=== PATIENT | male | born 1935 | race Caucasian/White ===

== ENCOUNTER 2024-02-09 20:18 | Inpatient (IN) | payer OTHER ==
[~2024-02-09] VITALS: Ht 172.7 cm; Wt 55.8 kg
[2024-02-09 20:20] VITALS: BP_SYST 130; PULSE 78; RESP 15; TEMP 97.9; O2SAT 98
[2024-02-09] MEDS ORDERED: iohexoL 350 mgI/mL, 100 ML INFUS..BTL IV ONE (20:58)
[2024-02-09 21:21] LABS: BASOPHILS % (AUTO) 0.8 % (0.0-2.0); EOSINOPHILS # (AUTO) 0.1 K/uL (0.0-0.4); EOSINOPHILS % (AUTO) 1.5 % (0.0-4.0); HEMATOCRIT 33.5 % (36-54); HEMOGLOBIN 11.4 g/dL (14.0-18.0); LYMPHOCYTES # (AUTO) 0.8 K/uL (1.0-5.5); LYMPHOCYTES % (AUTO) 14.5 % (20.5-51.5); MEAN CORPUSCULAR HEMOGLOBIN 31 pg (27-31); MEAN CORPUSCULAR HGB CONC 34 % (32-36); MEAN CORPUSCULAR VOLUME 91 fL (79.0-98.0); MONOCYTES # (AUTO) 0.4 K/uL (0.0-1.0); MONOCYTES % (AUTO) 6.8 % (1.7-9.3); NEUTROPHILS % (AUTO) 76.4 % (40.0-70.0); PLATELET COUNT (AUTO) 250 K/uL (130-430); RED BLOOD CELL COUNT(AUTO) 3.68 MIL/uL (4.2-6.2); RED CELL DISTRIBUTION WIDTH 15.3 % (9.0-15.0); WHITE BLOOD COUNT (AUTO) 5.2 K/uL (4.8-10.8)
[2024-02-09 21:29] LABS: ANION GAP 9 (5-15); CALCIUM 8.1 mg/dL (8.4-11.0); CARBON DIOXIDE 27 mmol/L (23-29); CHLORIDE 101 mmol/L (98-107); CREATININE 1.05 mg/dL (0.55-1.30); GLUCOSE 85 mg/dL (74-106); SODIUM SERUM 137 mmol/L (136-145); UREA NITROGEN, BLOOD 29 mg/dL (8-21)
[2024-02-09 21:34] LABS: INR 1.3 (0.80-1.20); PROTHROMBIN TIME 13.3 SECS (9.5-12.5)
[2024-02-09] MEDS: NACL 0.9% 1,000 ML IV ONE (21:58)
[2024-02-09] MEDS ORDERED: ONDANSETRON HCL 4 MG/2 ML VIAL IVP PRN (22:45)
[2024-02-09] MEDS ORDERED: KETOROLAC TROMETHAMINE 15 MG VIAL IVP PRN (22:45)
[2024-02-09] MEDS ORDERED: LORazepam 2 MG/ML VIAL IVP PRN (22:45)
[2024-02-09] MEDS: ASPIRIN 325 MG TABLET PO ONE (23:27)
[2024-02-09] MEDS ORDERED: LOSA-413 PO (23:49)
[2024-02-09] MEDS ORDERED: APIX5TAB PO (23:49)
[2024-02-09] MEDS ORDERED: METO25TA3 PO (23:49)
[2024-02-09] MEDS ORDERED: PERC10 PO (23:49)
[2024-02-09] MEDS ORDERED: LYR25 PO (23:49)
[2024-02-09] MEDS ORDERED: LIP80 PO (23:49)
[2024-02-09] MEDS ORDERED: AMIO200T66 PO (23:49)
[2024-02-09] MEDS ORDERED: MAGN296S8 PO (23:49)
[2024-02-09] MEDS: ATORVASTATIN 20 MG TABLET PO SCH (23:51)
[2024-02-10] VITALS: BP_SYST 94; PULSE 85; RESP 16; TEMP 97.3; O2SAT 99
[2024-02-10 00:31] VITALS: BP_SYST 94; PULSE 85; RESP 16; TEMP 97.3; O2SAT 99
[2024-02-10] MEDS: NACL 0.9% 1,000 ML IV SCH ×2 (04:03→11:40)
[2024-02-10] MEDS ORDERED: ONDANSETRON HCL 4 MG/2 ML VIAL IVP PRN (04:30)
[2024-02-10] MEDS ORDERED: LORazepam 2 MG/ML VIAL IVP PRN (04:30)
[2024-02-10] MEDS: ATORVASTATIN 20 MG TABLET ONE (06:00)
[2024-02-10 08:19] VITALS: BP_SYST 126; PULSE 90; RESP 18; TEMP 97.5; O2SAT 99
[2024-02-10] MEDS ORDERED: ACET-2634 PO (11:53)
[2024-02-10] MEDS ORDERED: CALC1WAF4 PO (11:53)
[2024-02-10] MEDS ORDERED: OXYC-128 PO (11:53)
[2024-02-10] MEDS ORDERED: DICL100G60 TP (11:53)
[2024-02-10] MEDS ORDERED: FURO20TA4 PO (11:53)
[2024-02-10] MEDS ORDERED: MAGN250C PO (11:58)
[2024-02-10] MEDS ORDERED: CALC-808 PO (11:58)
[2024-02-10 12:00] VITALS: BP_SYST 110; PULSE 88; RESP 18; TEMP 97.8; O2SAT 98
[2024-02-10 16:00] VITALS: BP_SYST 103; PULSE 91; RESP 19; TEMP 97.5; O2SAT 98
[2024-02-10] MEDS ORDERED: MENTHOL/ZINC OXIDE 113 GM OINT. TP PRN (16:45)
[2024-02-10 20:00] VITALS: BP_SYST 110; PULSE 87; RESP 20; TEMP 99.2; O2SAT 95
[2024-02-10] MEDS: KETOROLAC TROMETHAMINE 15 MG VIAL IVP PRN (22:12)
[2024-02-10] MEDS ORDERED: OXYCODONE/ACETAMINOPHEN 5-325 TABLET PO PRN (23:00)
[2024-02-10] MEDS ORDERED: ACETAMINOPHEN 500 MG TABLET PO PRN (23:00)
[2024-02-11] VITALS: BP_SYST 127; PULSE 82; RESP 18; TEMP 98.8; O2SAT 98
[2024-02-11 08:00] VITALS: BP_SYST 135; PULSE 90; RESP 16; TEMP 96.7
[2024-02-11 09:14] LABS: CHOLESTEROL 94 mg/dL (<200); HDL CHOLESTEROL 42 mg/dL (>45); TRIGLYCERIDES 43 mg/dL (30-150)
[2024-02-11] MEDS: LOSARTAN POTASSIUM 50 MG TABLET (COZAAR) PO SCH (09:37)
[2024-02-11] MEDS: AMIODARONE HCL 200 MG TABLET PO SCH (09:38)
[2024-02-11] MEDS: METOPROLOL SUCCINATE 25 MG TAB.SR.24H (TOPROL XL) PO SCH (09:39)
[2024-02-11] MEDS: PREGABALIN 25 MG CAPSULE (LYRICA) PO SCH (09:43)
[2024-02-11] MEDS: FUROSEMIDE 20 MG TABLET PO SCH (09:43)
[2024-02-11 12:00] VITALS: BP_SYST 121; PULSE 80; RESP 18; TEMP 97.3
[2024-02-11 16:12] VITALS: BP_SYST 103; PULSE 93; RESP 16; TEMP 96.8; O2SAT 97
[2024-02-11] MEDS ORDERED: CALCIUM 200 mg(from Citrate)/VITAMIN D3 250 units TABLET PO SCH (18:00)
[2024-02-11] MEDS ORDERED: CALCIUM CARBONATE/VITAMIN D3 1 TAB TABLET PO SCH (18:00)
[2024-02-11] MEDS ORDERED: ATORVASTATIN 20 MG TABLET PO SCH (21:00)
== END 2024-02-11 17:00 | DRG 69 ==
LOC: SED 20:18 → STU 22:43
PROVIDERS: ADMIT Family Medicine; ATTEND Family Medicine
DX: G45.9 Transient cerebral ischemic attack, unspecified (principal); E44.1 Mild protein-calorie malnutrition; Z68.1 Body mass index [BMI] 19.9 or less, adult; F41.9 Anxiety disorder, unspecified; F03.90 Unspecified dementia, unspecified severity, without behavioral disturbance, psychotic disturbance, mood disturbance, and anxiety; I11.0 Hypertensive heart disease with heart failure; I50.9 Heart failure, unspecified; E78.5 Hyperlipidemia, unspecified; G62.9 Polyneuropathy, unspecified; I48.91 Unspecified atrial fibrillation; Z95.0 Presence of cardiac pacemaker; Z88.5 Allergy status to narcotic agent; Z79.01 Long term (current) use of anticoagulants; Z79.899 Other long term (current) drug therapy
CPT/HCPCS: 36415; 70450; 70496; 70498; 71045; 80048; 80061; 83880; 84484; 85025; 85610; 85730; 87081; 92610-GN; 93005; 96360; 97110-GP; 97112-GP; 97116-GP; 97530-GP; 99285; G0378; J1885; Q9967